=== PATIENT | male | born 1995 | race Caucasian/White ===

== ENCOUNTER 2017-11-05 21:28 | Emergency (ER) | payer SELFPAY | END 2017-11-05 22:25 | disposition home or self-care (01) | LOC: EDBD → EDUNIT# 21:28 → ERS 21:28 | DX: T24.201A Burn of second degree of unspecified site of right lower limb, except ankle and foot, initial encounter (principal); F17.210 Nicotine dependence, cigarettes, uncomplicated; X16.XXXA Contact with hot heating appliances, radiators and pipes, initial encounter | CPT/HCPCS: 99283 ==